=== PATIENT | female | born 1945 | race Caucasian/White ===

== ENCOUNTER 2023-04-14 05:07 | Observation (INO) ==
--- NOTE | 2023-03-18 12:15 | PAT Medication Instructions ---
Medication Instructions Date of Service March 18, 2023 Home Medications pantoprazole 40 mg tablet,delayed release 40 mg PO QAM vitamin B complex (B Complex-Vitamin B12 tablet) 1 tab PO QAM acetaminophen 500 mg tablet 500 mg PO Q6H PRN Pain DO NOT take the morning of surgery vitamin B complex (B Complex-Vitamin B12 tablet) 1 tab PO QAM Take morning of surgery With a small sip of water, OTHERWISE NOTHING TO EAT OR DRINK AFTER MIDNIGHT: pantoprazole 40 mg tablet,delayed release 40 mg PO QAM acetaminophen 500 mg tablet 500 mg PO Q6H PRN Pain (if needed) Take evening before surgery acetaminophen 500 mg tablet 500 mg PO Q6H PRN Pain (if needed) Other Notes If you have any questions please call us at [phone] or [phone] or [phone] or [phone]
--- NOTE | 2023-03-24 09:05 | Anesthesiology Consultation ---
Date of Service March 24, 2023 Assessment & Plan (1) Encounter for pre-operative examination: - Infectious disease screening: Per assessment on 03/24/23: No known infectious disease contacts or current infectious disease symptoms. No noted Covid positive test result in past 90 days. - Outpatient joint assessment: Pt currently scheduled for inpatient pathway. If surgeon requests review for outpatient joint pathway, patient is not recommended candidate for outpatient joint program from anesthesia standpoint. - -althea reaction: Per patient, received knee injection with Dr. Avel scruggs with use of Marcaine (bupivacaine). Patient states delayed reaction of palpitations, chest redness, flushing. She states subsequently in 2018, she had hip injection with "a different type of -kandice medication and pre-treatment" in which she had a similar type of reaction of palpitations, flushing, rash but to a milder degree. Case reviewed with Dr. Villarreal/Dr. Porter. They both do not feel that allergy testing/anything further needed preoperatively from their perspective. At anesthesiologist discretion DOS regarding ultimate anesthetic type. Chart Review Chart Review: Acceptable Risk for Surgery and Patient seen in Pre Admission Testing Teaching & Discussion Pre-Anesthesia Teaching/Discussion Notes: Instructed NPO after midnight before surgery,except medications with 15 cc of water. Medication instructions provided according to the PAT guidelines. History Surgery Operation Date: 04/14/23 08:50 Proposed Procedures p Left Total Hip Arthroplasty - Valerio Vallecillo MD Height/Weight Height: 5 ft 4 in Weight: 86.2 kg Allergies Allergy/AdvReac Type Severity Reaction Status Date / Time bupivacaine [From Marcaine] Allergy Severe Knee Verified 03/24/23 09:31 injection- Palpitations, chest redness, flushing Penicillins Allergy Severe Anaphylaxis Verified 03/16/23 15:26 peanut Allergy Intermediate Peanut/hazelnut- Verified 03/18/23 13:37 rash ibuprofen Allergy Mild Rash Verified 03/16/23 15:26 Macrolide Antibiotics Allergy Mild Rash Verified 03/16/23 15:26 tetracycline Allergy Mild Rash Verified 03/16/23 15:26 althea Allergy Severe Hip Uncoded 03/24/23 09:31 injection (-kandice)- palpitations, flushing, rash soda Allergy Mild Rash Uncoded 03/16/23 15:26 Medications Home Medications Medication Instructions Recorded Confirmed Last Taken pantoprazole 40 mg tablet,delayed 40 mg PO QAM 11/14/22 03/16/23 Unknown release vitamin B complex (B 1 tab PO QAM 11/14/22 03/16/23 Unknown Complex-Vitamin B12 tablet) acetaminophen 500 mg tablet 500 mg PO Q6H PRN Pain 03/16/23 03/16/23 Unknown Past Medical History Medical History Aortic stenosis Echo 03/05/23: Mild aortic stenosis Bilateral hip bursitis Diverticular disease Hereditary hemochromatosis Therapeutic phlebotomy- most recent 1 year ago Hip arthritis Hyperlipidemia Kidney stones Lumbar spondylosis Exercise / Class Metabolic Activity II 4-5 Yardwork/Stairs/Walk up hill (one FS (no CP, no SOB)) Past Surgical History Surgical History H/O cystoscopy History of colonoscopy History of dilatation and curettage S/P carpal tunnel release Right Status post open reduction and internal fixation (ORIF) of fracture Right arm Past Anesthesia History No Hx of Anesthesia Complications and No Family Hx of Anesthesia Complications History of PONV No Hx of PONV and No Hx of Motion Sickness Social History Smoking Status: Never smoker Do You Dip or Chew Tobacco: No Hx Alcohol Use: No Hx Substance Use: No substance use type: does not use Review of Systems Patient denies chest pain, shortness of breath, dyspnea on exertion, fever, chills, cough, wheezing, palpitations. Physical Exam Vital Signs VITALS BP 156/84 P 69 TEMP 98.2 SP02 96%RA RESP 16 PHYSICAL Mildly decreased cervical extension range of motion. Full TMJ range of motion. TMD 4 finger breaths Mallampati Score 2 Dentition: missing molars, + right lower side/molar (implant + bridges) Lungs: clear throughout to auscultation Cardiac: regular rate and rhythm, III/ systolic murmur with faint carotid radiatiion Spine: normal Extremities: no LE edema Lab Results Anesthesia Preop Results Results Anesthesia Widget: WBC 4.24 K/ul (4.8-10.8) L 03/24/23 Hgb 13.4 g/dl (12.0-16.0) 03/24/23 Hct 38.1 % (37.0-47.0) 03/24/23 Plt 302 K/uL (130-400) 03/24/23 PT 11.0 Seconds (9.0-12.0) 03/24/23 PTT 27.7 Seconds (21.0-31.0) 03/24/23 INR 1.0 (0.9-1.1) 03/24/23 Blood Type O Positive 03/24/23 Antibody Screen NEGATIVE 03/24/23 Testing Laboratory Results 03/19/23 SODIUM 139 POTASSIUM 4.7 CHLORIDE 102 CO2 25 BUN 15 CREATININE 1.2 GLUCOSE 101 Electrocardiogram Date: 03/24/23 NSR at 69bpm. "Normal ECG" Chest X-Ray Date: 03/24/23 FINDINGS: Endoscopy clip projects over the stomach. Cardiomediastinal and hilar silhouettes are unchanged. No pneumothorax, pleural effusion, airspace consolidation or pulmonary edema. Degenerative changes of the shoulders and spine. IMPRESSION: No acute process. Echocardiogram Date: 03/05/23 LVEF 60-64%. LV wall motion is normal.Moderately increased concentric LV wall thickness. Grade 1 diastolic dysfunction. Mildly calcified aortic valve. Mild aortic valve stenosis (MG 14 mmHg, peak aortic valve velocity 2.8m/sec). Compared to prior study 03/04/2022, there is no significant change per report.
--- NOTE | 2023-04-11 10:44 | History & Physical Report ---
Date of Service April 11, 2023 Assessment & Plan (1) Hip arthritis: 78-year-old female with bilateral hip DJD left side quite a bit worse than the right. She has failed all conservative measures. It does appear that the majority of her pain is coming from her hip. Plan: When taken to the operating room and do a left hip replacement. Dressing with this procedure explained the patient could be not limited to DVT PE infection neurological and vascular bleeding palm pain limb range of motion sepsis fairly with symptoms fracture dislocation nerve palsy etc. The patient understands and desires to proceed. Informed consent was obtained. She is fully aware this may not take away all of her pain. I do think it is going to help her significantly. As far as discharge plan she is planned to be discharged to [facility] for a brief rehab stay. We will plan on using aspirin for DVT prophylaxis. History of Present Illness Chief Complaint: . Bilateral hip pain left side greater than the right. Primary Care Provider: Bartolome Talbot MD . Patient is a 78-year-old female who now presents for surgical treatment of her left hip. She is got a several year history of increasing pain and discomfort both hips have been treated at [facility]. She was initially diagnosed with a labral tear. She has been through extensive conservative treatment which is not been successful. She had injection which provide some temporary relief but only temporary relief. She went through a therapy program and only made things worse. She describes groin pain lateral hip pain radiates down to her knee. No numbness. She like to have her left hip fixed. The right hip is not as bad. Allergies Allergy/AdvReac Type Severity Reaction Status Date / Time bupivacaine [From Marcaine] Allergy Severe Knee Verified 03/24/23 09:31 injection- Palpitations, chest redness, flushing Penicillins Allergy Severe Anaphylaxis Verified 03/16/23 15:26 peanut Allergy Intermediate Peanut/hazelnut- Verified 03/18/23 13:37 rash ibuprofen Allergy Mild Rash Verified 03/16/23 15:26 Macrolide Antibiotics Allergy Mild Rash Verified 03/16/23 15:26 tetracycline Allergy Mild Rash Verified 03/16/23 15:26 althea Allergy Severe Hip Uncoded 03/24/23 09:31 injection (-kandice)- palpitations, flushing, rash soda Allergy Mild Rash Uncoded 03/16/23 15:26 Home Medications Medication Instructions Recorded Confirmed Type pantoprazole 40 mg tablet,delayed 40 mg PO QAM 11/14/22 03/16/23 History release vitamin B complex (B 1 tab PO QAM 11/14/22 03/16/23 History Complex-Vitamin B12 tablet) acetaminophen 500 mg tablet 500 mg PO Q6H PRN Pain 03/16/23 03/16/23 History Past Med/Surg History Medical History Aortic stenosis Echo 03/05/23: Mild aortic stenosis Bilateral hip bursitis Diverticular disease Hereditary hemochromatosis Therapeutic phlebotomy- most recent 1 year ago Hip arthritis Hyperlipidemia Kidney stones Lumbar spondylosis Surgical History H/O cystoscopy History of colonoscopy History of dilatation and curettage S/P carpal tunnel release Right Status post open reduction and internal fixation (ORIF) of fracture Right arm Social History Smoking Status: Never smoker Do You Dip or Chew Tobacco: No; Hx Alcohol Use: No Hx Substance Use: No Preferred Language: Croatian Educational Therapy Teacher Required: No Beliefs That Will Affect Care: None Current Living Situation: Spouse Feels Safe at Home: Yes Assistive Devices: Glasses Review of Systems All systems reviewed & are unremarkable except as noted in HPI & below. Physical Exam . Physical examination reveals a pleasant middle-age female but looks in pretty good health. Examination of the left hip reveal patient walks with a significant limp. She is tender over the lateral side of the hip. Her leg lengths appear pretty equal. She is got stiffness with hip motion. It recreates pain. Internal rotation in neutral at best. Negative straight leg raise. No knee effusion. She is neurologically intact. Constitutional WD/WN, vitals as above Neck trachea midline, no thyromegaly Respiratory normal respiratory effort, lungs clear to auscultation Cardiovascular RRR, no murmur, no edema Gastrointestinal (Abdomen) normal bowel sounds, soft, nontender, no hepatosplenomegaly Results & Data Results & Data Laboratory Results . Diagnostic Findings . X-rays of the hip were reviewed. Shows moderate to advanced hip arthritis. She got superior joint space remaining on the left side but significant central disease with osteophytes around the femoral head and acetabulum. PG Care Time/CCT Total # of Minutes Spent Total Time Spent with Patient: Total time spent is greater than 50% in coordination of care (as documented) at patient's floor/unit and/or counseling patient: Coding Level of Care Code None Diagnoses Hip arthritis M16.10
[~2023-04-14 05:07] MED LIST: ALLERGY Noted to ORDERED Medication SCH
[2023-04-14] MEDS ORDERED: ceFAZolin 2000MG 2,000 MG/15 ML SYR IV SCH (06:00)
[2023-04-14] MEDS ORDERED: LR 60ML/HR IV SCH (06:00)
[2023-04-14] MEDS ORDERED: FAMOTIDINE 20 MG TAB PO SCH (06:00)
[2023-04-14] MEDS ORDERED: CeleBREX 200 MG CAP PO SCH (06:00)
[2023-04-14] MEDS ORDERED: METOCLOPRAMIDE HCL 10 MG TABLET PO SCH (06:00)
[2023-04-14] MEDS ORDERED: LR 500ML BOLUS, THEN 15ML/HR IV SCH (06:00)
[2023-04-14] MEDS ORDERED: TRANEXAMIC ACID 1,000 MG **IV Pre-op IV SCH (06:00)
[2023-04-14] MEDS ORDERED: ACETAMINOPHEN 500 MG TAB PO SCH (06:00)
[2023-04-14] MEDS: dexAMETHasone**PF** 10 MG/ML VIAL IV SCH ×2 (06:08→06:18)
[2023-04-14] MEDS ORDERED: ROPIVACAINE 0.5% 5 MG/ML 30 ML VIAL ONE (06:25)
[2023-04-14] MEDS ORDERED: fentaNYL citrate PF 100 MCG/2 ML VIAL IV PRN (06:42)
[2023-04-14] MEDS ORDERED: ONDANSETRON INJ 2 MG/ML 2 ML VIAL IV PRN ×2 (06:42→11:30)
[2023-04-14] MEDS ORDERED: ATROPINE SULFATE 0.1 MG/ML 10ML SYR IV PRN (06:42)
[2023-04-14] MEDS ORDERED: HYDROmorphone INJ 2 MG/ML SYR/VIAL IV PRN (06:42)
[2023-04-14] MEDS ORDERED: ePHEDrine sulfate 50 MG/ML AMP IV PRN (06:42)
[2023-04-14] MEDS ORDERED: MIDAZOLAM HCL 1 MG/ML 2ML VIAL ONE (06:50)
[2023-04-14] MEDS ORDERED: fentaNYL citrate PF 100 MCG/2 ML VIAL ONE (06:50)
--- NOTE | 2023-04-14 06:50 | History & Physical Bridge Note ---
Date of Service April 14, 2023 History & Physical Bridge Note I have examined the patient, reviewed the History & Physical and in the interval since the performance of the History & Physical I have noted the following changes of clinical significance: no changes noted
[2023-04-14] MEDS ORDERED: ROCURONIUM BROMIDE 10 MG/ML 5 ML VIAL IV ONE (07:17)
[2023-04-14] MEDS ORDERED: HYDROmorphone INJ 2 MG/ML SYR/VIAL ONE (07:17)
[2023-04-14] MEDS ORDERED: PROPOFOL IV EMULSION 10 MG/ML 20 ML VIAL IV ONE (07:17)
[2023-04-14] MEDS ORDERED: KETAMINE 50 MG/5 ML SYRINGE ONE (07:19)
[2023-04-14] MEDS ORDERED: ONDANSETRON INJ 2 MG/ML 2 ML VIAL ONE (08:06)
[2023-04-14] MEDS ORDERED: SUGAMMADEX SODIUM 200 MG/2 ML VIAL IV ONE (08:06)
[2023-04-14] MEDS ORDERED: KETOROLAC 30 MG/ML VIAL ONE (08:13)
[2023-04-14] MEDS ORDERED: Nursing to Pharmacy Communication SCH (08:30)
--- NOTE | 2023-04-14 08:36 | Operative Report ---
PG Post Operative Report Pre & Post Diagnosis Operation Date: 04/14/23 07:00 Pre-Op Diagnosis: Left Hip Degenerative Joint Disease Post-Op Diagnosis: Left Hip Degenerative Joint Disease I identified the patient and participated in the time-out.: Yes Procedure Operation Date: 04/14/23 07:00 Actual Procedures p Left Total Hip Arthroplasty(Left) - Valerio Vallecillo MD Surgeon Valerio Vallecillo MD Roll Carrier Emerson Jauregui PA-C Estimated Blood Loss 200 Findings Consistent with Post-Op Diagnosis Operative findings revealed advanced left hip DJD. She had pretty extensive grade 4 [id number] disease of the femoral head. The acetabular was not so involved. A moderate-sized joint effusion. Specimens Left femoral head sent for pathology. Anesthesia Type General Complications none Disposition Accompanied Patient To Recovery: No Indications Patient is a 78-year-old female said a several year history of increasing left hip pain discomfort. She been through extensive conservative treatment provided at [facility]. She continues to be bothered by the persistent thigh pain groin pain. X-rays show moderate to advanced hip arthritis. She elected proceed with total hip arthroplasty. She failed conservative measures. Description of Procedure Operative implants consist of: 1 Biomet G7 size 52 mm acetabular shell. 2. [place] hole eliminator. 3. 6.5 mm cancellous acetabular screws 1 at 35 mm length 1 to 25 mm length. 4. Highly cross-linked polyethylene liner with a 52 mm outer diameter and 36 mm inner diameter. 5. DePuy Karaya size 11 KLA femoral stem. 6. +5/36 mm ceramic articular ball. The patient was taken the operating, identified, placed on the operating table supine position. Contact areas were appropriately padded. IV antibiotics were provided by anesthesia team. A general anesthetic was implemented due to her history of multiple allergies to anesthetics. A Richards catheter was placed in sterile fashion. The patient was then placed in the right lateral decubitus position. An axillary roll was placed. A Stulberg hip positioner was used for positioning. The left hip and leg were then prepped and draped in usual sterile fashion. I attest to the content of the Intraoperative Record and any orders documented therein. Any exceptions are noted below.
--- NOTE | 2023-04-14 09:29 | Anesthesiology Progress Note ---
Date of Service April 14, 2023 Anesthesia Post Procedure Vital Signs Vital Signs: Temp Pulse Pulse Resp BP Pulse Ox O2 Del Method 04/14/23 09:20 82 14 180/80 H 98 Nasal Cannula 04/14/23 09:10 85 16 184/98 H 97 Nasal Cannula 04/14/23 09:00 85 16 188/89 H 100 Oxymask 04/14/23 08:45 90 16 154/93 H 100 Oxymask 04/14/23 08:35 36.0 C L 84 16 165/88 H 99 Oxymask 04/14/23 05:48 36.6 C 73 20 169/87 H 98 Room Air O2 Flow Rate 04/14/23 09:20 2 04/14/23 09:10 2 04/14/23 09:00 4 04/14/23 08:45 4 04/14/23 08:35 5 04/14/23 05:48 Pain Intensity Left Hip: Pain Intensity: 1 Transfer of Care Handoff Completed per policy Notes Mental Status: alert / awake / arousable and participated in evaluation Patient Amnestic to Procedure: Yes Nausea / Vomiting: adequately controlled Pain: adequately controlled Airway Patency, RR, SpO2: stable & adequate BP & HR: stable & adequate Hydration State: stable & adequate Anesthetic Complications: no major complications apparent and Pt Satisfied with anesthetic care
--- NOTE | 2023-04-14 09:30 | XRay Report ---
XR hip 1V LT w pelvis CLINICAL HISTORY: Left hip arthroplasty. COMPARISON: Left hip radiograph November 14, 2022. FINDINGS: Alignment of the total left hip arthroplasty is prominent. No periprosthetic fracture or u nexpected radiopaque foreign body. There are skin giorgi. [address] are in place. IMPRESSION: Expected findings following total left hip arthroplasty. ACT 112: Negative or not required by law. Electronically signed by: Barak Kemp M.D. 04/14/2023 9:29 AM
[2023-04-14] MEDS ORDERED: NALOXONE HCL 0.4 MG/1 ML VIAL/CARP IV PRN (11:30)
[2023-04-14] MEDS ORDERED: ALUMINUM/MAGNESIUM SUSP 30 ML UDC PO PRN (11:30)
[2023-04-14] MEDS ORDERED: traMADol HCL 50 MG TABLET PO PRN (11:30)
[2023-04-14] MEDS ORDERED: METOCLOPRAMIDE HCL INJ 5 MG/ML 2 ML VIAL IV PRN (11:30)
[2023-04-14] MEDS ORDERED: MAGNESIUM HYDROXIDE SUSP 30 ML UDC PO PRN (11:30)
[2023-04-14] MEDS ORDERED: HYDROmorphone INJ 0.5 MG/0.5 ML SYR IV PRN (11:30)
[2023-04-14] MEDS ORDERED: bisacodyL 10 MG SUPP PR PRN (11:30)
[2023-04-14] MEDS: SODIUM CHLORIDE 0.9% 1,000 ML IV SCH ×2 (12:57→23:57)
[2023-04-14] MEDS: PANTOprazole 40 MG TAB PO SCH (13:33)
[2023-04-14] MEDS: MULTIVITAMIN TAB PO SCH (13:34)
[2023-04-14] MEDS: ACETAMINOPHEN 500 MG TAB PO SCH ×2 (13:34→20:28)
[2023-04-14] MEDS: DOCUSATE SODIUM 100 MG CAP PO SCH ×2 (13:34→20:28)
[2023-04-14] MEDS: ASPIRIN 81 MG ECTAB PO SCH ×2 (13:34→20:28)
[2023-04-14] MEDS ORDERED: TRANEXAMIC ACID / 0.7% NACL 1,000 MG/100 ML BAG IV SCH (14:45)
[2023-04-14] MEDS: KETOROLAC TROMETHAMINE 15 MG/ML VIAL IV SCH ×2 (14:55→20:30)
[2023-04-14] MEDS: ceFAZolin 2000MG 2,000 MG/15 ML SYR IV SCH ×2 (16:31→23:57)
[2023-04-14] MEDS: ASCORBIC ACID 500 MG TAB PO SCH (18:49)
[2023-04-14] MEDS ORDERED: SENNA 8.6 MG TAB PO SCH (21:00)
[2023-04-15] MEDS: KETOROLAC TROMETHAMINE 15 MG/ML VIAL IV SCH ×2 (01:46→07:53)
[2023-04-15] MEDS: PANTOprazole 40 MG TAB PO SCH ×2 (05:42→07:54)
[2023-04-15] MEDS: ACETAMINOPHEN 500 MG TAB PO SCH ×2 (05:42→13:22)
[2023-04-15 06:16] LABS: BUN Creatinine Ratio 14.3 (10-20); Calcium 8.6 mg/dl (8.6-10.3); Creatinine Clr Calc Pharmacy 54.9 ml/min; Est GFR (African American) 70.5 ml/min; Est GFR (Non-African American) 60.9 ml/min; Potassium 4.4 mmol/L (3.5-5.1)
[2023-04-15 06:23] LABS: Basophils # (auto) 0.02 K/uL (0.00-0.20); Basophils % (auto) 0.2 %; Hematocrit (blood only) 30.9 % (37.0-47.0); Hemoglobin 10.9 g/dl (12.0-16.0); Immature Granulocytes # (auto) 0.03 K/uL (0.01-0.20); Immature Granulocytes % (auto) 0.3 %; Lymphocytes # (auto) 1.65 K/uL (1.20-3.40); Mean Corpuscular Hemoglobin 34.8 pg (25.0-34.0); Mean Corpuscular Hgb Conc 35.3 g/dL (32.0-36.0); Mean Corpuscular Volume 98.7 fL (80.0-100.0); Mean Platelet Volume 9.8 fL (9.4-12.4); Monocytes # (auto) 0.77 K/uL (0.11-0.59); Monocytes % (auto) 7.9 %; Neutrophils # (auto) 7.23 K/uL (1.40-6.50); Neutrophils % (auto) 74.6 %; Platelet Count 270 K/uL (130-400); RDW Coefficient of Variation 13.2 % (11.5-14.5); RDW Standard Deviation 46.7 fL (36.4-46.3); Red Blood Count 3.13 M/uL (4.20-5.40)
[2023-04-15] MEDS: ASPIRIN 81 MG ECTAB PO SCH (07:54)
[2023-04-15] MEDS: MULTIVITAMIN TAB PO SCH (07:54)
[2023-04-15] MEDS: ASCORBIC ACID 500 MG TAB PO SCH (07:54)
[2023-04-15] MEDS: DOCUSATE SODIUM 100 MG CAP PO SCH (07:55)
[2023-04-15] MEDS ORDERED: dexAMETHasone 10 MG in SYRINGE 0 ML IV SCH (08:00)
[2023-04-15] MEDS ORDERED: VITAMIN B COMPLEX TAB PO SCH (09:00)
--- NOTE | 2023-04-15 12:29 | Surgery Progress Note ---
Date of Service April 15, 2023 Assessment & Plan (1) Status post left hip replacement: Plan: 78-year-old female postop day 1 from left hip replacement doing pretty well. Pain is controlled. Hips located. She is neurologically intact. Plan: 1. DVT prophylaxis including thigh-high teds, SCDs, aspirin twice a day. 2. PT OT weight-bear as tolerated left total protocol. 3. Pain control doing okay with current pain regimen. 4. Disposition plan to discharge to if she has she is approved. Get social work nurse working on that today Admission and Anticipated Discharge Date Admission Date: April 14, 2023 Subjective 78-year-old female postop day 1 from left hip replacement. She is doing pretty well. She got out of bed last evening and walked around the halls with a walker. Went pretty well. Some pain but manageable. No chest pain or shortness of breath. Not feeling dizzy or lightheaded. Physical Exam Physical Exam: Physical exam shows a pleasant middle-age female. She is in bedside chair looks pretty comfortable. Examination of the left leg reveals dressing clean dry and intact. Leg lengths are equal. Thigh soft and supple. She is neurologically intact. Respiratory: normal respiratory effort, lungs clear to auscultation Cardiovascular: RRR, no murmur, no edema Gastrointestinal (Abdomen): normal bowel sounds, soft, nontender, no hepatosplenomegaly Results & Data Vital Signs (Past 12 Hours) Vital Signs Temp Pulse Resp BP Pulse Ox O2 Del Method 04/15/23 07:37 36.7 C 89 18 128/72 99 Room Air 04/15/23 03:16 36.5 C 71 18 117/72 97 Room Air Laboratory Results Hemoglobin is 10.9. Hematocrit 30.9. Electrolytes are stable. PG Care Time/CCT Total # of Minutes Spent Total Time Spent with Patient: Total time spent is greater than 50% in coordination of care (as documented) at patient's floor/unit and/or counseling patient: Coding Level of Care Code 04778 Post Operative Follow-Up Diagnoses Status post left hip replacement Z96.642
--- NOTE | 2023-04-15 17:06 | Operative Report ---
PG Post Operative Report Pre & Post Diagnosis Operation Date: 04/14/23 07:00 Pre-Op Diagnosis: Left Hip Degenerative Joint Disease Post-Op Diagnosis: Left Hip Degenerative Joint Disease I identified the patient and participated in the time-out.: Yes Procedure Operation Date: 04/14/23 07:00 Actual Procedures p Left Total Hip Arthroplasty(Left) - Valerio Vallecillo MD Surgeon Valerio Vallecillo MD Spring Up Supervisor Emerson Jauregui PA-C Estimated Blood Loss 200 Findings Consistent with Post-Op Diagnosis Specimens Left femoral head sent for pathology Anesthesia Type General Complications none Disposition Accompanied Patient To Recovery: No Indications Patient is a 78-year-old female who is got a gradual progressive increasing left hip pain that is occurred over the past several years patient been through extensive conservative treatment which became less successful with time. Starting to really limit her mobility and ability to maintain an independent active lifestyle. She like to proceed with total hip arthroplasty. Description of Procedure Operative implants consist of: 1 Biomet G7 size 52 mm acetabular shell. 2. [place] eliminator. 3. 6.5 cancellous acetabular screws 1 at 35 mm in length and 125 mm length. 4. Highly cross-linked polyethylene liner with a 52 mm outer diameter and 36 mm inner diameter. 5. DePuy Karaya size 11 KLA femoral stem. 6. +5/36 mm ceramic articular ball. The patient was taken to the operating, identified, and placed on the operating table supine position. Contractors were appropriately padded. A general anesthetic was employed by anesthesia team. A Richards catheter was placed in sterile fashion. The patient was then placed in the right lateral decubitus position position. An axillary roll was placed. Stulberg hip positioner was used for positioning. The left hip and leg were then prepped and draped in usual sterile fashion. A posterolateral approach of the left hip was then performed through a curvilinear incision centered over the greater trochanter. Sharp dissection carried through subcutaneous tissue down of the IT band gluteal fascia the IT band and gluteal fascia/longitudinally in line with skin incision. The underlying greater bursa was excised. The piriformis and external rotators along with the posterior hip joint capsule were then released as a single layer. Hip was internally rotated and dislocated. Femoral neck osteotomy cut was made with Final Cut 8 mm above the lesser trochanter. Femoral head was removed and sent for pathology. The femur was retracted anteriorly. Attention drawn the acetabulum. The acetabular labrum was excised. Pulmonary fat was excised. Sequential reaming the acetabular was then performed again with size 45 and progressing up to 51. I reamed a little with a 52 reamer and then placed a 52 mm Biomet G7 acetabular shell in about 40 degrees lateral opening and 20 degrees of anteversion. It was fixed with two 6.5 cancellous acetabular screws. A trial liner was placed. Attention drawn the femur. The proximal femur entered with a Cook cutter followed by canal finder. I then broached beginning with size 8 and progressing up to 11. Excellent fit 11. I then trialed the hip with a +5 articular ball and was fully stable. It did recreate appropriate soft tissue tension and leg lengths. We elect to place these implants. All trial implants were removed. [place] hole eliminator was placed. Highly cross-linked polyethylene liner was placed. A size 11 KLA femoral stem was impacted in position. A +5/36 mm ceramic articular ball was placed. Hip was located and found to be stable. Attention drawn toward closing. Wounds irrigated cosigns pulsatile lavage solution. The posterior capsule and external rotators were repaired through drill holes in the posterior trochanter with #2 Tycron suture. The IT band gluteal fascia then closed in 1 PDS suture running fashion. Subcutaneous tissues then closed in 2 layers the deep layer #1 Vicryl suture and subcutaneous tissue with 2 Dexon suture in buried interrupted fashion. Skin was closed skin giorgi. Leg was then cleaned and dried and sterile dressing with Xeroform, 4 x 4's, ABD pad and foam tape was applied. P atient then transferred to the recovery in stable condition. Patient tolerated procedure well and there were no complications. Emerson Jauregui, my physician orthopedic assistant, was present for the entire procedure. His assistance was essential and required for appropriate patient positioning, prepping and draping, surgical exposure, performing the technical details of the operation, placement the implants, closure of the wound, and placement of the sterile bandage. I attest to the content of the Intraoperative Record and any orders documented therein. Any exceptions are noted below.
--- NOTE | 2023-04-27 09:24 | Discharge Summary ---
Date of Service April 27, 2023 Discharge Data Procedures Performed Operation Date: 04/14/23 07:00 Actual Procedures p Left Total Hip Arthroplasty(Left) - Valerio Vallecillo MD Hospital Course (1) Status post left hip replacement: This is a 78 year old patient admitted on 04/14/23 and underwent total hip arthroplasty. She tolerated the procedure well and there were no complications. Transferred to the PACU post op and later to the orthopedic floor for further care. She was given ancef for antibiotic prophylaxis. She was also given RAYSHAWN stockings, SCDs, and aspirin for DVT prophylaxis. Hemoglobin, hematocrit, and vital signs were monitored during her hospital stay and remained stable. Did not require any blood transfusions. There were no complications during her hospital stay. By post op day #1 the patient was tolerating a regular diet, pain was reasonably controlled with oral pain medicine, and she was participating in physical therapy. On post op day #1 the patient was discharged to a rehab facility. She was given printed discharge instructions including prescriptions for extra strength tylenol, aspirin, and tramadol. Continue hip precautions. Continue physical therapy, weight bearing as tolerated. Continue RAYSHAWN stockings. Follow up approximately 2 weeks post op or sooner if there are problems or concerns. Coding Level of Care Code None Diagnoses Status post left hip replacement Z96.642
== END 2023-04-15 14:19 ==
LOC: PACUINP 05:07 → ASU 05:07 → 3E 12:44